=== PATIENT | female | born 1950 | race Caucasian/White ===

== ENCOUNTER 2020-11-08 21:28 | Observation (INO) | payer OTHER ==
--- NOTE | 2020-11-08 22:32 | XR ---
EXAMINATION TYPE: XR chest 2V DATE OF EXAM: 11/08/2020 COMPARISON: NONE HISTORY: Chest pain TECHNIQUE: 2 views FINDINGS: Heart and mediastinum are normal. Lungs are clear of infiltrate. There is no heart failure. There are chest leads. IMPRESSION: Normal chest.
[2020-11-08 23:20] LABS: Basophils # (A) 0.1 k/uL (0-0.2); Basophils % (A) 1 %; Eosinophils # (A) 0.1 k/uL (0-0.7); Eosinophils % (A) 1 %; HCT 39.7 % (34.0-46.0); HGB 12.6 gm/dL (11.4-16.0); Lymphocytes # (A) 2.8 k/uL (1.0-4.8); Lymphocytes % (A) 23 %; MCH 28.2 pg (25.0-35.0); MCHC 31.7 g/dL (31.0-37.0); Mean Platelet Volume 8.2; Monocytes % (A) 9 %; Neutrophils # (A) 7.4 k/uL (1.3-7.7); Neutrophils % (A) 63 %; Platelet Count 227 k/uL (150-450); RBC 4.47 m/uL (3.80-5.40); RDW 14.2 % (11.5-15.5); WBC 11.8 k/uL (3.8-10.6)
--- NOTE | 2020-11-08 23:32 | ED ---
Chest Pain HPI - General Chief Complaint: Chest Pain Stated Complaint: Chest Pain Source: patient Mode of arrival: wheelchair Limitations: no limitations - History of Present Illness Initial Comments: 70-year-old female with past medical history of paroxysmal A. fib presents to the emergency room and chest pain. She reports that around 7:30 she was attempting to get ready for bed. Had sudden onset of bilateral arm pain and jaw pain. Is an appetite on her phone that allows her to check her heart rate. She reports it is jumping all over the place. She has had a history of A. fib and therefore was concerned that she went back into A. fib. She does see Dr. Way out of [facility]. She is currently not on a blood thinner however denies having any issues with bleeding. States that she thought she didn't need to be on a blood thinner anymore. She has not had any recent stress testing. He denies any associated shortness of breath. No nausea or v omiting. Denies associated diaphoresis. No fevers, chills or cough. Patient took 4 baby aspirins before coming into the ED. No other alleviating, precipitating or modifying factors - Related Data Home Medications Medication Instructions Recorded Confirmed Aspirin EC [Ecotrin Low Dose] 81 mg PO DAILY 11/08/20 11/08/20 Atorvastatin Calcium [Lipitor] 20 mg PO HS 11/08/20 11/08/20 Cholecalciferol [Vitamin D3 (25 50 mcg PO DAILY 11/08/20 11/08/20 Mcg = 1000 Iu)] Cinnamon Bark [Cinnamon] 500 mg PO DAILY 11/08/20 11/08/20 Citalopram Hydrobromide [CeleXA] 20 mg PO HS 11/08/20 11/08/20 Diltiazem HCl [Cardizem LA] 180 mg PO DAILY 11/08/20 11/08/20 Diphenoxylate HCl/Atropine 1 tab PO BID PRN 11/08/20 11/08/20 [Lomotil 2.5-0.025 mg Tablet] Insulin Aspart [NovoLOG Flexpen] See Protocol SQ AC-TID 11/08/20 11/08/20 Insulin Glargine,Hum.rec.anlog 34 unit SQ HS 11/08/20 11/08/20 [Lantus Solostar Pen] Losartan Potassium [Cozaar] 25 mg PO DAILY 11/08/20 11/08/20 Multivitamins, Thera [Multivitamin 1 tab PO DAILY 11/08/20 11/08/20 (formulary)] [place]-3 Fatty Acids/Fish Oil [Fish 1 cap PO DAILY 11/08/20 11/08/20 Oil 1,000 mg Softgel] Prevalite Packet 1 packet PO BID 11/08/20 11/08/20 Allergies Allergy/AdvReac Type Severity Reaction Status Date / Time levofloxacin [From Levaquin] Allergy Unknown Verified 11/08/20 23:27 metformin Allergy Unknown Verified 11/08/20 23:27 Penicillins Allergy Unknown Verified 11/08/20 23:27 Childhood piroxicam [From Feldene] Allergy Unknown Verified 11/08/20 23:27 Review of Systems ROS Statement: Those systems with pertinent positive or pertinent negative responses have been documented in the HPI. ROS Other: All systems not noted in ROS Statement are negative. EKG Findings - EKG Comments: EKG Findings:: EKG demonstrates A. fib with a rate of 76. QRS 130. QTC of 470. Right bundle branch block. No acute ST segment elevations Past Medical History Past Medical History: Atrial Fibrillation, Diabetes Mellitus, Hyperlipidemia, Hypertension History of Any Multi-Drug Resistant Organisms: None Reported Additional Past Surgical History / Comment(s): gastric bypass sleve 2011, cyst removed left breast Smoking Status: Never smoker Past Alcohol Use History: None Reported Past Drug Use History: None Reported General Exam Limitations: no limitations General appearance: alert, in no apparent distress Head exam: Present: atraumatic, normocephalic, normal inspection Eye exam: Present: normal appearance, PERRL, EOMI. Absent: scleral icterus, conjunctival injection, periorbital swelling ENT exam: Present: normal exam, mucous membranes moist Neck exam: Present: normal inspection. Absent: tenderness, meningismus, lymphadenopathy Respiratory exam: Present: normal lung sounds bilaterally. Absent: respiratory distress, wheezes, rales, rhonchi, stridor Cardiovascular Exam: Present: regular rate, irregular rhythm, normal heart sounds. Absent: systolic murmur, diastolic murmur, rubs, gallop, clicks GI/Abdominal exam: Present: soft, normal bowel sounds. Absent: distended, tenderness, guarding, rebound, rigid Extremities exam: Present: normal inspection, full ROM, normal capillary refill. Absent: tenderness, pedal edema, joint swelling, calf tenderness Back exam: Present: normal inspection Neurological exam: Present: alert, oriented X3, CN II-XII intact Psychiatric exam: Present: normal affect, normal mood Skin exam: Present: warm, dry, intact, normal color. Absent: rash Course Vital Signs 11/08/20 11/08/20 21:36 21:46 Temperature 98.4 F Pulse Rate 75 Pulse Rate [ 70 Door Opener ] Respiratory 18 Rate Blood Pressure 141/65 O2 Sat by Pulse 97 Oximetry Chest Pain MDM - MDM On arrival patient is placed into room 10. A thorough history and physical exam was performed. IV is established laboratories is her conducted. Patient went for chest x-ray. 12-lead EKG was performed which demonstrates A. fib with a con trolled rhythm. Laboratory studies demonstrates a negative troponin. TSH, magnesium and potassium normal. Chest x-ray demonstrates no acute findings. I did discuss diagnosis, differential and treatment options. I did recommend heparinizing the patient due to her reported chest pain with A. fib rhythm. When questioning the patient further, she does admit that she had vaginal bleeding one previously on anticoagulation. I informed her that this is most likely the reason why she was taken off and therefore I will not integrate rate the patient at this time. I recommended trending her troponins and getting a cardiology evaluation. Patient agreed to this. She'll be admitted to [facility] positions. She is currently awaiting a bed on the floor. CT chest for PE ordered due to elevated d-dimer. Pending results. Patient will be signed out to Dr. Montgomery. Disposition Clinical Impression: Afib, Chest pain Disposition: ADMITTED IP TO THIS HOSP Condition: Stable Is patient prescribed a controlled substance at d/c from ED?: No Referrals: Roly Campbell MD [Primary Care Provider] - 1-2 days Decision to Admit Reason: Admit from EC Decision Date: 11/09/20 Decision Time: 00:34
[2020-11-08 23:34] LABS: ALT 14 U/L (4-34); AST 24 U/L (14-36); African American GFR (CKD) >90 (>60 ml/min/1.73 sqM); Albumin 3.6 g/dL (3.5-5.0); Alkaline Phosphatase 99 U/L (38-126); Blood Urea Nitrogen 22 mg/dL (7-17); Calcium 9.2 mg/dL (8.4-10.2); Carbon Dioxide 25 mmol/L (22-30); Chloride 103 mmol/L (98-107); Glucose 246 mg/dL (74-99); Lipase 66 U/L (23-300); Magnesium 1.9 mg/dL (1.6-2.3); Non-African American GFR(CKD) 88 (>60 ml/min/1.73 sqM); Total Bilirubin 0.6 mg/dL (0.2-1.3); Total Protein 6.4 g/dL (6.3-8.2)
[2020-11-08 23:36] LABS: Anion Gap 9 mmol/L; Potassium 4.3 mmol/L (3.5-5.1); Sodium 137 mmol/L (137-145)
[2020-11-08 23:49] LABS: INR 0.9 (<1.2); Partial Thromboplastin Time 23.9 sec (22.0-30.0); Prothrombin Time 9.8 sec (9.0-12.0)
[2020-11-09] MEDS ORDERED: NALOXONE 0.4 MG/ML 1 ML VIAL IV PRN (01:01)
--- NOTE | 2020-11-09 01:19 | P.HPIM ---
History of Present Illness H&P Date: 11/09/20 Patient is a 70-year-old female with a PMH of hypertension, hyperkalemia, type II DM, A. marcello previously on Xarelto discontinued due to GI and vaginal bleeding presented to the emergency room with complaints of a petition and chest discomfort. The patient reports that her symptoms started this evening while she was sitting watching television with her . She reports that she initially felt palpitations, shortly after which she developed a left-sided mild discomfort radiated of the [place] maximal intensity, constant, nonradiating, with no alleviating or exacerbating features on nonpleuritic. The patient subsequently became alarmed and came to the emergency room. At time of intervi ew, she reported that her discomfort had improved to 1 out of 10 and she denied experiencing shortness of breath, nausea, vomiting, diaphoresis. Also denied cough, fever, chills, abdominal pain, diarrhea. EKG in the emergency room revealed A. fib with a right bundle branch block at 76 bpm, chest x-ray was unremarkable, with laboratory evaluation remarkable for symptoms of 11.8, d- dimer 0.94, glucose 246, troponin less than 0.012, and proBNP 138. Review of systems: Pertinent positives and negatives as discussed in HPI, a complete review of systems was performed and all other systems are negative. Physical examination: General: non toxic, no distress, appears at stated age, morbidly obese Derm: no unusual rashes/lesions no unusual ecchymoses, warm, dry Head: atraumatic, normocephalic, symmetric Eyes: EOMI, no lid lag, anicteric sclera, pupils equal round reactive to light ENT: Nose and ears atraumatic, no thrush, no pharyngeal erythema Neck: No thyromegaly, no cervical lymphadenopathy, trachea midline, supple Mouth: no lip lesion, mucus membranes moist Cardiovascular: S1S2 reg, no murmur, positive posterior tibial pulse bilateral, 1+ bilateral lower extremity pitting edema, capillary refill less than 2 seconds Lungs: CTA bilateral, no rhonchi, no rales , no accessory muscle use Abdominal: soft, nontender to palpation, no guarding, no appreciable organomegaly, normal bowel sounds Ext: no gross muscle atrophy, muscle strength 5 out of 5 in all 4 extremities grossly, no contractures, Neuro: CN II-XI grossly intact, light touch intact all 4 extremities, finger to nose within normal limits, Psych: Alert, oriented, appropriate affect Assessment/plan Chest pain, rule out ACS -Continue with aspirin -Cardiology consult -Trend troponin -Cardiac monitoring Elevated d-dimer -CT chest angio ordered and currently pending A. fib, currently not on anticoagulation -Patient reports she was previously on Xarelto which causes her to have a serious episode of GI bleeding along with vaginal bleeding after which the medication was discontinued -Continue cardiac monitoring -C/w home Cardizem dose Leukocytosis, likely due to acute stressor -No signs of active infection at this time Chronic conditions: Type II DM, hypertension Hyperlipidemia -Continue with home meds -Lispro insulin sliding scale and blood glucose monitoring -Check A1c -Levemir 20 units daily at bedtime (takes 34 units of Lantus daily at bedtime at home) DVT prophylaxis -Heparin subcu The patient is admitted with an anticipated less than 2 midnight stay for evaluation of chest pain. CODE STATUS: Full Code Discussed with: Patient Anticipated discharge date: in am Anticipated discharge place: Home Past Medical History Past Medical History: Atrial Fibrillation, Diabetes Mellitus, Hyperlipidemia, Hypertension History of Any Multi-Drug Resistant Organisms: None Reported Additional Past Surgical History / Comment(s): gastric bypass sleve 2011, cyst removed left breast Smoking Status: Never smoker Past Alcohol Use History: None Reported Past Drug Use History: None Reported - Past Family History Mother Family Medical History: Chest Pain / Angina Medications and Allergies Home Medications Medication Instructions Recorded Confirmed Type Aspirin EC [Ecotrin Low Dose] 81 mg PO DAILY 11/08/20 11/08/20 History Atorvastatin Calcium [Lipitor] 20 mg PO HS 11/08/20 11/08/20 History Cholecalciferol [Vitamin D3 (25 50 mcg PO DAILY 11/08/20 11/08/20 History Mcg = 1000 Iu)] Cinnamon Bark [Cinnamon] 500 mg PO DAILY 11/08/20 11/08/20 History Citalopram Hydrobromide [CeleXA] 20 mg PO HS 11/08/20 11/08/20 History Diltiazem HCl [Cardizem LA] 180 mg PO DAILY 11/08/20 11/08/20 History Diphenoxylate HCl/Atropine 1 tab PO BID PRN 11/08/20 11/08/20 History [Lomotil 2.5-0.025 mg Tablet] Insulin Aspart [NovoLOG Flexpen] See Protocol SQ AC-TID 11/08/20 11/08/20 History Insulin Glargine,Hum.rec.anlog 34 unit SQ HS 11/08/20 11/08/20 History [Lantus Solostar Pen] Losartan Potassium [Cozaar] 25 mg PO DAILY 11/08/20 11/08/20 History Multivitamins, Thera [Multivitamin 1 tab PO DAILY 11/08/20 11/08/20 History (formulary)] [place]-3 Fatty Acids/Fish Oil [Fish 1 cap PO DAILY 11/08/20 11/08/20 History Oil 1,000 mg Softgel] Prevalite Packet 1 packet PO BID 11/08/20 11/08/20 History Allergies Allergy/AdvReac Type Severity Reaction Status Date / Time levofloxacin [From Levaquin] Allergy Unknown Verified 11/08/20 23:27 metformin Allergy Unknown Verified 11/08/20 23:27 Penicillins Allergy Unknown Verified 11/08/20 23:27 Childhood piroxicam [From Feldene] Allergy Unknown Verified 11/08/20 23:27 Physical Exam Vitals: Vital Signs Temp Pulse Pulse Resp BP Pulse Ox 11/08/20 21:46 70 11/08/20 21:36 98.4 F 75 18 141/65 97 Intake and Output 11/08/20 11/08/20 11/09/20 14:59 22:59 06:59 Other: Weight 136.985 kg Results CBC & Chem 7: 11/08/20 23:21 11/08/20 23:21 Labs: Abnormal Lab Results - Last 24 Hours (Table) 11/08/20 11/08/20 11/08/20 Range/Units 23:21 23:21 23:21 WBC 11.8 H (3.8-10.6) k/uL D-Dimer 0.94 H (<0.60) mg/L FEU BUN 22 H (7-17) mg/dL Glucose 246 H (74-99) mg/dL
[2020-11-09] MEDS ORDERED: INSULIN DETEMIR (LEVEMIR) 100 UNIT/ML SYR SQ SCH ×2 (01:40→21:00)
--- NOTE | 2020-11-09 01:54 | CT ---
EXAMINATION TYPE: CT chest angio for PE DATE OF EXAM: 11/09/2020 COMPARISON: None HISTORY: elevated d-dimer CT DLP: 785.2 mGycm Automated exposure control for dose reduction was used. CONTRAST: Performed with IV Contrast, patient injected with 100 mL of Isovue 370. There are 3-D post processed images. The lungs are clear of consolidation. There is no evidence of a pulmonary mass. There is no pleural e ffusion. There are surgical clips at the gastroesophageal junction. There is small hiatal hernia. Hea rt size is normal. There is no pericardial effusion. There is no mediastinal adenopathy. There are no hilar masses. Thoracic aorta is intact. There is no aneurysm or dissection. There is normal contrast opacification of the pulmonary arteries. There are no filling defects. Ascen ding aorta measures 3.3 cm. Thoracic spine is intact. There is no compression fracture. Sternum is intact. Ribs appear intact. IMPRESSION: No evidence of pulmonary embolism. Negative exam. No acute lung disease.
[2020-11-09 01:57] LABS: Glucose,Whole Blood 159 mg/dL (75-99)
[2020-11-09 07:49] LABS: African American GFR (CKD) >90 (>60 ml/min/1.73 sqM); Anion Gap 7 mmol/L; Blood Urea Nitrogen 18 mg/dL (7-17); Calcium 9.1 mg/dL (8.4-10.2); Carbon Dioxide 26 mmol/L (22-30); Chloride 106 mmol/L (98-107); Glucose 113 mg/dL (74-99); Non-African American GFR(CKD) 90 (>60 ml/min/1.73 sqM); Potassium 4.2 mmol/L (3.5-5.1); Sodium 139 mmol/L (137-145)
[2020-11-09] MEDS ORDERED: HEPARIN SODIUM,PORCINE/PF 5,000 UNIT/0.5 ML SYRINGE SQ SCH (08:00)
[2020-11-09 08:35] LABS: Glucose,Whole Blood 97 mg/dL (75-99)
[2020-11-09] MEDS: INSULIN ASPART (NovoLOG) 100 UNIT/ML VIAL SQ SCH ×2 (08:35→12:39)
[2020-11-09] MEDS ORDERED: MULTIVITAMINS, THERA 1 EACH TAB PO SCH (09:00)
[2020-11-09] MEDS ORDERED: DILTIAZEM CD 180 MG CAP.ER.24H PO SCH (09:00)
[2020-11-09] MEDS ORDERED: CHOLECALCIFEROL 25 MCG (1000 IU) TABLET PO SCH (09:00)
[2020-11-09] MEDS ORDERED: ASPIRIN 81 MG PO SCH (09:00)
[2020-11-09] MEDS ORDERED: LOSARTAN 25 MG TAB PO SCH (09:00)
[2020-11-09] MEDS ORDERED: PREVALITE PO SCH (09:00)
[2020-11-09] MEDS ORDERED: NON FORMULARY DRUG (Cinnamon Bark [Cinnamon] 500 MG Capsule) PO SCH (09:00)
[2020-11-09] MEDS ORDERED: NON FORMULARY DRUG (Omega-3 Fatty Acids/Fish Oil [Fish Oil 1,000 Mg Softgel] 1 EACH Capsul PO SCH (09:00)
[2020-11-09] MEDS ORDERED: DOBUTamine DRIP for NUC MED 500 MG in DEXTROSE/WATER 1 250ML.BAG IV PRN (09:04)
[2020-11-09 10:50] LABS: HCT 39.4 % (37.2-46.3); HGB 12.1 g/dL (12.0-15.0); MCH 27.1 pg (27.0-32.0); MCHC 30.7 g/dL (32.0-37.0); MCV 88.3 fL (80.0-97.0); Mean Platelet Volume 10.9 fL (9.5-12.2); Platelet Count 215 X 10*3/uL (140-440); RBC 4.46 X 10*6/uL (4.10-5.20); RDW 14.6 % (11.5-14.5); WBC 8.77 X 10*3/uL (4.50-10.00)
--- NOTE | 2020-11-09 11:37 | P.CRDCN ---
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 Way, type II DM, hypertension, dyslipidemia, morbid obesity, moderate mitral regurgitation, obstructive sleep apnea uses CPAP at home. She follows with Dr. Chad Way. She presents to the emergency department with palpitations. The patient reports yesterday she was doing some yard work outside during the day. She states that her symptoms started yesterday 11/08 evening, while she was sitting watching television with her . She reports that she initially felt palpitations, she states that she felt her heart racing and then also slowing down. She had some lower jaw discomfort that lasted less than 5 minutes she also states she felt hearing stenographer her bilateral upper extremities. Her symptoms have resolved. She had no aggravating factors. She states she did take aspirin at home with some relief. She states she has chronic shortness of breath with ambulation, no acute worsening. She denies chest pain, shortness of breath, lightheadedness, dizziness, syncope. She denies symptoms of orthopnea or PND. She states she does have some left upper shoulder pain that is resting with left arm movement and palpation. She denies history of TN or stroke. She states she did not have her vaginal bleeding followed up by Gynecology. She states she is compliant with her medications and CPAP at home. She denies smoking, alcohol or illicit drug use. DIAGNOSTICS EKG on admission revealed atrial fibrillation, right bundle-branch block, heart rate 76 Repeat EKG reveals sinus bradycardia, first-degree AV block, right bundle branch block, heart rate 58. EKG obtained and Dr. Way's office in January 2020 with similar findings. Telemetry tracings indicate sinus mechanism at bedside . Chest xray no acute cardiopulmonary process CT chest was performed due to elevated d-dimer was negative for pulmonary embolism. Laboratory reviewed, troponin negative 3, sodium 139, potassium 4.2, BUN 18, serum creatinine 0.6, COVID-19 PCR negative, proBNP 1:30, TSH within normal limits Most recent echocardiogram January 2019 revealed an EF of 6065% trace aortic regurgitation, mild to moderate mitral regurgitation Current home cardiac medications include atorvastatin 20 mg nightly, losartan 25 mg daily, Cardizem 180 mg daily, aspirin 81 mg daily REVIEW OF SYSTEMS At the time of my exam: CONSTITUTIONAL: Denies fever or chills. CARDIOVASCULAR: +palpitations +jaw pain Denies chest pain, shortness of breath, orthopnea, PND RESPIRATORY: Denies cough. GASTROINTESTINAL: Denies abdominal pain, diarrhea, constipation, nausea or vomiting. MUSCULOSKELETAL: +left shoulder pain with movement and palpation NEUROLOGIC: Denies numbness, tingling, headacbe or weakness. ENDOCRINE: Denies fatigue, weight change, polydipsia or polyurina. GENITOURINARY: Denies burning, hematuria or urgency with micturation. HEMATOLOGIC: Denies history of anemia or bleeding. PHYSICAL EXAMINATION Blood pressure 138/99, are 36, afebrile, maintaining oxygen saturations on room air CONSTITUTIONAL: No apparent distress. HEENT: Head is normocephalic. Pupils are equal, round. Sclerae anicteric. Mucous membranes of the mouth are moist. No JVD. No carotid bruit. CHEST EXAMINATION: Lungs are clear to auscultation. No chest wall tenderness is noted on palpation or with deep breathing. HEART EXAMINATION: Regular rate and rhythm. S1, S2 heard. Systolic murmur at apex. ABDOMEN: Soft, nontender. Positive bowel sounds. EXTREMITIES: 2+ peripheral pulses, no lower extremity edema and no calf tenderness. NEUROLOGIC EXAMINATION: Patient is awake, alert and oriented x3. 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 She denies any chest pain, shortness of breath. EKG with no evidence of acute ischemia. Troponin negative x 3. -Obtain 2D echocardiogram -Recommend anticoagulation for atrial fibrillation. Risk of stroke and benefits and risk of anti-coagulation was discussed with the patient. She is in agreement to restarting her Xarelto, monitoring her bleeding and following up with her provider if vaginal bleeding reoccurs and seeing a long term. We will restart Xarelto 20mg daily. Patient is unsure of her coverage, will consult case management for assistance. Prescription sent to [facility]. -Stop aspirin -Continue home cardizem, losartan and statin -From a cardiology perspective, patient is stable to be discharged home. Recommend close follow up with her after school teacher Dr. Way Nurse Practitioner note has been reviewed, I agree with a documented findings and plan of care. Patient was seen and examined. Past Medical History Past Medical History: Atrial Fibrillation, Diabetes Mellitus, Hyperlipidemia, Hypertension History of Any Multi-Drug Resistant Organisms: None Reported Additional Past Surgical History / Comment(s): gastric bypass sleve 2011, cyst removed left breast Smoking Status: Never smoker Past Alcohol Use History: None Reported Past Drug Use History: None Reported - Past Family History Mother Family Medical History: Chest Pain / Angina Medications and Allergies Home Medications Medication Instructions Recorded Confirmed Type Atorvastatin Calcium [Lipitor] 20 mg PO HS 11/08/20 11/08/20 History Cholecalciferol [Vitamin D3 (25 50 mcg PO DAILY 11/08/20 11/08/20 History Mcg = 1000 Iu)] Cinnamon Bark [Cinnamon] 500 mg PO DAILY 11/08/20 11/08/20 History Citalopram Hydrobromide [CeleXA] 20 mg PO HS 11/08/20 11/08/20 History Diltiazem HCl [Cardizem LA] 180 mg PO DAILY 11/08/20 11/08/20 History Diphenoxylate HCl/Atropine 1 tab PO BID PRN 11/08/20 11/08/20 History [Lomotil 2.5-0.025 mg Tablet] Insulin Aspart [NovoLOG Flexpen] See Protocol SQ AC-TID 11/08/20 11/08/20 History Insulin Glargine,Hum.rec.anlog 34 unit SQ HS 11/08/20 11/08/20 History [Lantus Solostar Pen] Losartan Potassium [Cozaar] 25 mg PO DAILY 11/08/20 11/08/20 History Multivitamins, Thera [Multivitamin 1 tab PO DAILY 11/08/20 11/08/20 History (formulary)] [place]-3 Fatty Acids/Fish Oil [Fish 1 cap PO DAILY 11/08/20 11/08/20 History Oil 1,000 mg Softgel] Prevalite Packet 1 packet PO BID 11/08/20 11/08/20 History Rivaroxaban [Xarelto] 20 mg PO W/SUPPER 30 Days #30 tab 11/09/20 Rx Allergies Allergy/AdvReac Type Severity Reaction Status Date / Time levofloxacin [From Levaquin] Allergy Unknown Verified 11/08/20 23:27 metformin Allergy Unknown Verified 11/08/20 23:27 Penicillins Allergy Unknown Verified 11/08/20 23:27 Childhood piroxicam [From Feldene] Allergy Unknown Verified 11/08/20 23:27 Physical Exam Vitals: Vital Signs Temp Pulse Pulse Resp BP Pulse Ox 11/09/20 04:00 60 20 124/84 96 11/09/20 01:44 73 20 124/84 97 11/08/20 21:46 70 11/08/20 21:36 98.4 F 75 18 141/65 97 Intake and Output 11/08/20 11/09/20 11/09/20 22:59 06:59 14:59 Other: Weight 136.985 kg Results 11/09/20 06:38 11/09/20 06:38 Cardiac Enzymes 11/08/20 11/08/20 11/09/20 Range/Units 23:21 23:21 02:52 AST 24 (14-36) U/L Troponin I <0.012 <0.012 (0.000-0.034) ng/mL Coagulation 11/08/20 Range/Units 23:21 PT 9.8 (9.0-12.0) sec APTT 23.9 (22.0-30.0) sec CBC 11/08/20 Range/Units 23:21 WBC 11.8 H (3.8-10.6) k/uL RBC 4.47 (3.80-5.40) m/uL Hgb 12.6 (11.4-16.0) gm/dL Hct 39.7 (34.0-46.0) % Plt Count 227 (150-450) k/uL Comprehensive Metabolic Panel 11/08/20 Range/Units 23:21 Sodium 137 (137-145) mmol/L Potassium 4.3 (3.5-5.1) mmol/L Chloride 103 (98-107) mmol/L Carbon Dioxide 25 (22-30) mmol/L BUN 22 H (7-17) mg/dL Creatinine 0.71 (0.52-1.04) mg/dL Glucose 246 H (74-99) mg/dL Calcium 9.2 (8.4-10.2) mg/dL AST 24 (14-36) U/L ALT 14 (4-34) U/L Alkaline Phosphatase 99 (38-126) U/L Total Protein 6.4 (6.3-8.2) g/dL Albumin 3.6 (3.5-5.0) g/dL Current Medications Generic Name Dose Route Start Last Admin Trade Name Freq PRN Reason Stop Dose Admin Aspirin 81 mg 11/09/20 09:00 Aspirin 81 Mg PO DAILY [facility] Atorvastatin Calcium 20 mg 11/09/20 21:00 Atorvastatin 20 Mg Tab PO HS [facility] Cholecalciferol 50 mcg 11/09/20 09:00 Cholecalciferol 25 Mcg (1000 Iu) Tablet PO DAILY [facility] Citalopram Hydrobromide 20 mg 11/09/20 21:00 Citalopram Hydrobromide 20 Mg Tab PO HS [facility] Diltiazem HCl 180 mg 11/09/20 09:00 Diltiazem Cd 180 Mg Cap.Er.24h PO DAILY [facility] Heparin Sodium (Porcine) 5,000 unit 11/09/20 08:00 Heparin Sodium,Porcine/Pf 5,000 Unit/0.5 Ml Syringe SQ Q8HR [facility] Insulin Aspart 0 unit 11/09/20 07:30 Insulin Aspart (Novolog) 100 Unit/Ml Vial SQ ACHS [facility] Protocol Insulin Detemir 34 unit 11/09/20 21:00 Insulin Detemir (Levemir) 100 Unit/Ml Syr SQ HS [facility] Insulin Detemir 20 unit 11/09/20 01:40 11/09/20 01:52 Insulin Detemir (Levemir) 100 Unit/Ml Syr SQ 20 unit HS [facility] Administration Losartan Potassium 25 mg 11/09/20 09:00 Losartan 25 Mg Tab PO DAILY [facility] Multivitamins 1 each 11/09/20 09:00 Multivitamins, Thera 1 Each Tab PO DAILY [facility] Naloxone HCl 0.2 mg 11/09/20 01:01 Naloxone 0.4 Mg/Ml 1 Ml Vial IV Q2M PRN Opioid Reversal Intake and Output 11/08/20 11/09/20 11/09/20 22:59 06:59 14:59 Other: Weight 136.985 kg 11/08/20 23:21 11/08/20 23:21
--- NOTE | 2020-11-09 11:51 | ECHOF ---
Referral Reason:LV function MEASUREMENTS -------- HEIGHT: 154.9 cm WEIGHT: 137.0 kg BP: 138/99 RVIDd: 2.7 cm (< 3.3) IVSd: 1.1 cm (0.6 - 1.1) LVIDd: 4.5 cm (3.9 - 5.3) LVPWd: 1.1 cm (0.6 - 1.1) IVSs: 1.9 cm LVIDs: 2.9 cm LVPWs: 1.5 cm LA Diam: 3.5 cm (2.7 - 3.8) LAESV Index (A-L): 28.86 ml/m Ao Diam: 2.9 cm (2.0 - 3.7) AV Cusp: 2.0 cm (1.5 - 2.6) MV EXCURSION: 12.148 mm (> 18.000) MV EF SLOPE: 55 mm/s (70 - 150) EPSS: 0.4 cm MV E Kapil: 1.54 m/s MV DecT: 268 ms MV A Kapil: 1.63 m/s MV E/A Ratio: 0.94 RAP: 5.00 mmHg RVSP: 38.79 mmHg FINDINGS -------- Sinus rhythm. This was a technically adequate study. The left ventricular size is normal. There is borderline concentric left ventricular hypertrophy. Overall left ventricular systolic function is normal with, an EF between 60 - 65 %. The right ventricle is normal in size. Normal LA size by volume 22+/-6 ml/m2. The right atrium is normal in size. Interatrial and interventricular septum intact. The aortic valve is trileaflet, and appears structurally normal. No aortic stenosis or regurgitation. The mitral valve leaflets are mildly thickened. Mild mitral annular calcification present. There is trace to mild mitral regurgitation. Mild tricuspid regurgitation present. There is mild pulmonary hypertension. The right ventricular systolic pressure, as measured by Doppler, is 38.79mmHg. Trace/mild (physiologic) pulmonic regurgitation. The aortic root size is normal. Normal inferior vena cava with normal inspiratory collapse consistent with estimated right atrial pre ssure of 5 mmHg. There is no pericardial effusion. CONCLUSIONS -------- 1. The left ventricular size is normal. 2. There is borderline concentric left ventricular hypertrophy. 3. Overall left ventricular systolic function is normal with, an EF between 60 - 65 %. 4. The aortic valve is trileaflet, and appears structurally normal. No aortic stenosis or regurgitati on. 5. The mitral valve leaflets are mildly thickened. 6. Mild mitral annular calcification present. 7. There is trace to mild mitral regurgitation. 8. Mild tricuspid regurgitation present. 9. There is mild pulmonary hypertension. 10. The right ventricular systolic pressure, as measured by Doppler, is 38.79mmHg. 11. Trace/mild (physiologic) pulmonic regurgitation. 12. There is no pericardial effusion. FOOD INSPECTOR: Cathy Watson RDCS
[2020-11-09 12:35] LABS: Glucose,Whole Blood 143 mg/dL (75-99)
[2020-11-09 14:14] VITALS: BP 138/89; PULSE 82; RESP 20; TEMP 98.3
--- NOTE | 2020-11-09 14:32 | P.DS ---
Providers Date of admission: 11/09/20 01:01 Expected date of discharge: 11/09/20 Attending physician: Edmund Alcocer MD Consults: 11/09/20 01:03 Consult Physician Urgent Consulting Provider: [facility] Consult Reason/Comments: acute chest pain, paroxysmal afib Do you want consulting provider notified?: Yes Primary care physician: Roly Campbell Hospital Course: Discharge Diagnosis: Chest pain P. A fib Reactive leukocytosis Diabetes mellitus type 2 with hyperglycemia-A1c 7.4 orbid obesity with BMI 57.1 Hospital Course: Patient is a 70-year-old female with a history of diabetes mellitus type 2, hypertension, and dyslipidemia who presented to the hospital with complaints of chest pain. Initial EKG was nonischemic and troponins were negative, BNP was negative. D-dimer was slightly elevated. She was admitted for chest pain observation. She underwent a CTA of the chest which did not show any signs of acute pulmonary embolism. The remainder of his labs were negative. She was seen by cardiology who felt that this was not consistent with acute coronary syndrome and was more consistent with possible A. fib with RVR at home. 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 She was determined stable for discharge. CTA chest-no evidence of acute PE, no acute lung disease Echocardiogram with EF 60-65%, borderline LVH, mitral annular calcification, and mild pulmonary hypertension Patient seen and examined at bedside. Feels back to her normal self. No additional chest pain or shortness of breath. Vital signs reviewed and stable. General: non toxic, no distress, appears at stated age, obese Derm: warm, dry Head: atraumatic, normocephalic, symmetric Eyes: EOMI, no lid lag, anicteric sclera Mouth: no lip lesion, mucus membranes moist Cardiovascular: S1S2 reg, no murmur, positive posterior tibial pulse bilateral, Lungs: Decreased breath sounds bilaterally secondary to body habitus, no rhonchi, no rales , no accessory muscle use Abdominal: soft, nontender to palpation, no guarding, no appreciable organomega ly Ext: no gross muscle atrophy, no edema, no contractures Neuro: CN II-XI grossly intact, no focal neuro deficits Psych: Alert, oriented, appropriate affect A total of 32 minutes of time were spent preparing this complex discharge summary . Patient Condition at Discharge: Stable Plan - Discharge Summary New Discharge Prescriptions: New Rivaroxaban [Xarelto] 20 mg PO W/SUPPER 30 Days #30 tab Continue Prevalite Packet 1 packet PO BID Insulin Aspart [NovoLOG Flexpen] See Protocol SQ AC-TID Diphenoxylate HCl/Atropine [Lomotil 2.5-0.025 mg Tablet] 1 tab PO BID PRN PRN Reason: Diarrhea Losartan Potassium [Cozaar] 25 mg PO DAILY [place]-3 Fatty Acids/Fish Oil [Fish Oil 1,000 mg Softgel] 1 cap PO DAILY Multivitamins, Thera [Multivitamin (formulary)] 1 tab PO DAILY Insulin Glargine,Hum.rec.anlog [Lantus Solostar Pen] 34 unit SQ HS Cinnamon Bark [Cinnamon] 500 mg PO DAILY Cholecalciferol [Vitamin D3 (25 Mcg = 1000 Iu)] 50 mcg PO DAILY Diltiazem HCl [Cardizem LA] 180 mg PO DAILY Citalopram Hydrobromide [CeleXA] 20 mg PO HS Atorvastatin Calcium [Lipitor] 20 mg PO HS Discontinued Aspirin EC [Ecotrin Low Dose] 81 mg PO DAILY Discharge Medication List Atorvastatin Calcium [Lipitor] 20 mg PO HS 11/08/20 [History] Cholecalciferol [Vitamin D3 (25 Mcg = 1000 Iu)] 50 mcg PO DAILY 11/08/20 [History] Cinnamon Bark [Cinnamon] 500 mg PO DAILY 11/08/20 [History] Citalopram Hydrobromide [CeleXA] 20 mg PO HS 11/08/20 [History] Diltiazem HCl [Cardizem LA] 180 mg PO DAILY 11/08/20 [History] Diphenoxylate HCl/Atropine [Lomotil 2.5-0.025 mg Tablet] 1 tab PO BID PRN 11/08/20 [History] Insulin Aspart [NovoLOG Flexpen] See Protocol SQ AC-TID 11/08/20 [History] Insulin Glargine,Hum.rec.anlog [Lantus Solostar Pen] 34 unit SQ HS 11/08/20 [History] Losartan Potassium [Cozaar] 25 mg PO DAILY 11/08/20 [History] Multivitamins, Thera [Multivitamin (formulary)] 1 tab PO DAILY 11/08/20 [History] [place]-3 Fatty Acids/Fish Oil [Fish Oil 1,000 mg Softgel] 1 cap PO DAILY 11/08/20 [History] Prevalite Packet 1 packet PO BID 11/08/20 [History] Rivaroxaban [Xarelto] 20 mg PO W/SUPPER 30 Days #30 tab 11/09/20 [Rx] Follow up Appointment(s)/Referral(s): Roly Campbell MD [Primary Care Provider] - 1-[address] MD [REFERRING] - 1 Week Patient Instructions/Handouts: Rivaroxaban (By mouth) Activity/Diet/Wound Care/Special Instructions: Activity: as tolerated Diet: cardiac, heart healthy Discharge Disposition: HOME SELF-CARE
[2020-11-09] MEDS ORDERED: RIVAROXABAN 20 MG TAB PO SCH (17:30)
[2020-11-09] MEDS ORDERED: CITALOPRAM HYDROBROMIDE 20 MG TAB PO SCH (21:00)
[2020-11-09] MEDS ORDERED: ATORVASTATIN 20 MG TAB PO SCH (21:00)
== END 2020-11-09 14:15 | disposition home or self-care (01) ==
LOC: EC 21:28 → 6NMEDSUR 11-09 01:01
PROVIDERS: ADMIT Internal Medicine; ATTEND Internal Medicine
DX: R07.9 Chest pain, unspecified (principal); I48.0 Paroxysmal atrial fibrillation; E11.65 Type 2 diabetes mellitus with hyperglycemia; D72.828 Other elevated white blood cell count; I44.0 Atrioventricular block, first degree; I45.10 Unspecified right bundle-branch block; I34.0 Nonrheumatic mitral (valve) insufficiency; R79.89 Other specified abnormal findings of blood chemistry; I10 Essential (primary) hypertension; Q24.5 Malformation of coronary vessels; I27.20 Pulmonary hypertension, unspecified; E78.5 Hyperlipidemia, unspecified; G47.33 Obstructive sleep apnea (adult) (pediatric); K44.9 Diaphragmatic hernia without obstruction or gangrene; M25.519 Pain in unspecified shoulder; R68.84 Jaw pain; M79.601 Pain in right arm; M79.602 Pain in left arm; E66.01 Morbid (severe) obesity due to excess calories; Z68.43 Body mass index [BMI] 50.0-59.9, adult; Z20.822 Contact with and (suspected) exposure to COVID-19; Z79.82 Long term (current) use of aspirin; Z79.899 Other long term (current) drug therapy; Z79.4 Long term (current) use of insulin; Z88.0 Allergy status to penicillin; Z88.1 Allergy status to other antibiotic agents; Z88.6 Allergy status to analgesic agent; Z88.8 Allergy status to other drugs, medicaments and biological substances; Z98.84 Bariatric surgery status; Z98.890 Other specified postprocedural states
CPT/HCPCS: 99285; 36415; 93005; 93306; 85379; 83880; 80053; 80048; 84443; 83690; 83735; 84484 ×2; 85025; 85027; 85610; 85730; 83036; 87635; 71046; 71275; G0378; Q9967